=== PATIENT | female | born 1940 | race Caucasian/White ===

== ENCOUNTER 2024-10-19 10:31 | Emergency (ER) | payer MEDICARE ==
[2024-10-19] MEDS ORDERED: Triamcinolone Acetonide 0.1% Crm 30 GM Tube ONE (13:30)
== END 2024-10-19 14:00 | disposition home or self-care (01) ==
LOC: LB.ED 10:31
DX: L25.9 Unspecified contact dermatitis, unspecified cause (principal); I10 Essential (primary) hypertension; Z88.1 Allergy status to other antibiotic agents; Z79.899 Other long term (current) drug therapy
CPT/HCPCS: 99282; A9270